=== PATIENT | female | born 1985 | race Hispanic/Latino ===

== ENCOUNTER 2022-07-26 22:36 | Inpatient (IN) | payer BC, OTHER ==
[2022-07-26] MEDS ORDERED: NIFEdipine 10 MG CAP ONE (22:54)
[2022-07-26] MEDS ORDERED: hydrALAZINE 20 MG/ML VIAL SLOW IVP PRN ×2 (23:11→23:31)
[2022-07-26 23:15] VITALS: BMI 44.1
[2022-07-26] MEDS ORDERED: Magnesium Sulfate 20 gm/500 ml 20 GM/500 ML BAG ONE (23:26)
[2022-07-26] MEDS ORDERED: Betamet Acet/Betamet Na Ph 30 MG/5 ML VIAL ONE (23:28)
[2022-07-26] MEDS ORDERED: Ondansetron PF 4 MG/2 ML Vial IVP PRN (23:31)
[2022-07-26] MEDS ORDERED: Lorazepam 2 MG/ML VIAL SLOW IVP PRN (23:31)
[2022-07-26] MEDS ORDERED: Calcium Gluc 4.6 MEQ/10 ML (100 MG/ML) SLOW IVP PRN (23:31)
[2022-07-26] MEDS ORDERED: Labetalol HCl 100 MG/20 ML VIAL SLOW IVP PRN (23:31)
[2022-07-26] MEDS ORDERED: Promethazine HCl 25 MG/ML VIAL IM PRN (23:31)
[2022-07-26] MEDS ORDERED: Labetalol HCl 100 MG/20 ML VIAL ONE (23:37)
[2022-07-26] MEDS: Lactated Ringer's 1,000 ML IV SCH (23:37)
[2022-07-26] MEDS ORDERED: Magnesium Sulfate 20 gm/500 ml 20 GM/500 ML BAG IVPB SCH (23:45)
[2022-07-26] MEDS ORDERED: Betamet Acet/Betamet Na Ph 30 MG/5 ML VIAL IM SCH (23:45)
[2022-07-26] MEDS: Labetalol HCl 100 MG/20 ML VIAL SLOW IVP PRN (23:46)
[2022-07-27 00:08] LABS: Hemoglobin 12.5 g/dL (12.0-15.5); Mean Corpuscular HGB CONC 34.5 g/dL (32.0-36.0); Mean Corpuscular Hemoglobin 29.3 pg (27.0-33.0); Mean Platelet Volume 12.6 fl (7.4-10.4); Platelet Count 361 10x3/uL (150-450); RBC Distribution Width 12.7 % (11.5-14.5); Red Blood Cell (RBC) Count 4.26 10x6/uL (3.90-5.03)
[2022-07-27 00:18] LABS: ALT (SGPT) 19 U/L (8-55); AST (SGOT) 19 U/L (5-34); Albumin 3.3 g/dL (3.5-5.0); Alkaline Phosphatase 253 U/L (40-110); Anion Gap 15 mmol/L (10-20); BUN (Urea Nitrogen) 11 mg/dL (7.0-18.7); Bilirubin, Total 0.4 mg/dL (0.2-1.2); Calc. Creatinine Clearance 217 mL/min (70-130); Calcium 8.7 mg/dL (7.8-10.44); Carbon Dioxide 20 mmol/L (22-29); Chloride 103 mmol/L (98-107); Estimated GFR 119; Globulin 3.7 g/dL (2.4-3.5); Glucose 106 mg/dL (70-105); Potassium 4.1 mmol/L (3.5-5.1); Sodium 134 mmol/L (136-145)
[2022-07-27] MEDS: Labetalol HCl 100 MG/20 ML VIAL SLOW IVP PRN (02:17)
[2022-07-27] MEDS ORDERED: metFORMIN 500 MG TAB PO SCH ×2 (08:00→19:45)
[2022-07-27] MEDS ORDERED: Labetalol HCl 200 MG TAB PO SCH (09:00)
[2022-07-27] MEDS ORDERED: NIFEdipine XL 90 MG TAB PO SCH (09:00)
[2022-07-27] MEDS ORDERED: Acetaminophen 325 MG TAB PO PRN ×2 (10:59→19:16)
[2022-07-27] MEDS: Lactated Ringer's 1,000 ML IV SCH (11:16)
[2022-07-27] MEDS ORDERED: hydrALAZINE 20 MG/ML VIAL SLOW IVP PRN ×2 (19:14→19:15)
[2022-07-27] MEDS ORDERED: Labetalol HCl 100 MG/20 ML VIAL SLOW IVP PRN (19:15)
[2022-07-27] MEDS ORDERED: Calcium Gluc 4.6 MEQ/10 ML (100 MG/ML) SLOW IVP PRN (19:15)
[2022-07-27] MEDS ORDERED: Lactated Ringer's 1,000 ML IV SCH (19:15)
[2022-07-27] MEDS ORDERED: Ondansetron PF 4 MG/2 ML Vial IVP PRN (19:15)
[2022-07-27] MEDS ORDERED: Betamet Acet/Betamet Na Ph 30 MG/5 ML VIAL IM SCH ×2 (19:15→23:45)
[2022-07-27] MEDS ORDERED: Lorazepam 2 MG/ML VIAL SLOW IVP PRN (19:15)
[2022-07-27] MEDS ORDERED: Promethazine HCl 25 MG/ML VIAL IM PRN (19:15)
[2022-07-27] MEDS: Magnesium Sulfate 20 gm/500 ml 20 GM/500 ML BAG IVPB SCH (19:43)
[2022-07-27] MEDS: Labetalol HCl 200 MG TAB PO SCH (21:08)
[2022-07-28 00:37] LABS: Creatinine, Urine 39.44 mg/dL (47-110); Protein, Urine Random Quant Less than 10 mg/dL (1-14)
[2022-07-28] MEDS: metFORMIN 500 MG TAB PO SCH (09:03)
[2022-07-28] MEDS: Labetalol HCl 200 MG TAB PO SCH (09:03)
[2022-07-28] MEDS ORDERED: Morphine PF 10 MG/10 ML VIAL ONE (19:14)
[2022-07-28] MEDS ORDERED: Fentanyl 100 MCG/2 ML VIAL ONE (19:14)
[2022-07-28] MEDS ORDERED: Oxytocin 10 UNITS/ML VIAL ONE ×2 (19:15→21:29)
[2022-07-28] MEDS ORDERED: Dexamethasone 4 mg/ml Vial ONE (19:15)
[2022-07-28] MEDS ORDERED: Ondansetron PF 4 MG/2 ML Vial ONE (19:15)
[2022-07-28] MEDS ORDERED: Famotidine/PF 20 mg/2ml Vial ONE (19:17)
[2022-07-28] MEDS ORDERED: CEFAZOLIN 2 GM VIAL ONE (19:17)
[2022-07-28] MEDS ORDERED: Bicitra 30 ML UDCUP PO PRN (19:31)
[2022-07-28] MEDS ORDERED: Famotidine/PF 20 mg/2ml Vial SLOW IVP PRN (19:31)
[2022-07-28 19:39] LABS: #Monocytes 0.9 10x3/uL (0.0-1.1); #Neutrophils 13.1 10x3/uL (1.5-8.4); %Basophils 0.2 % (0.0-2.0); %Eosinophils 0.1 % (0.0-6.0); %Lymphocytes 14.9 % (18.0-47.0); %Monocytes 5.6 % (0.0-10.0); %Neutrophils 77.1 % (40.0-75.0); Hemoglobin 11.6 g/dL (12.0-15.5); Mean Corpuscular HGB CONC 34.6 g/dL (32.0-36.0); Mean Corpuscular Hemoglobin 30.3 pg (27.0-33.0); Mean Corpuscular Volume 87.5 fl (81.6-98.3); Mean Platelet Volume 12.3 fl (7.4-10.4); Platelet Count 330 10x3/uL (150-450); RBC Distribution Width 13.2 % (11.5-14.5); Red Blood Cell (RBC) Count 3.83 10x6/uL (3.90-5.03); White Blood Cell (WBC) Count 16.9 10x3/uL (3.5-10.5)
[2022-07-28 19:45] LABS: ALT (SGPT) 31 U/L (8-55); AST (SGOT) 25 U/L (5-34); Albumin 3.1 g/dL (3.5-5.0); Alkaline Phosphatase 235 U/L (40-110); Anion Gap 15 mmol/L (10-20); BUN (Urea Nitrogen) 15 mg/dL (7.0-18.7); Bilirubin, Total 0.2 mg/dL (0.2-1.2); Calc. Creatinine Clearance 217 mL/min (70-130); Calcium 8.2 mg/dL (7.8-10.44); Carbon Dioxide 19 mmol/L (22-29); Chloride 105 mmol/L (98-107); Estimated GFR 119; Glucose 117 mg/dL (70-105); Potassium 4.2 mmol/L (3.5-5.1); Protein, Total 7.1 g/dL (6.0-8.3); Sodium 135 mmol/L (136-145)
[2022-07-28] MEDS ORDERED: CEFAZOLIN 2 GM in Sodium Chloride 0.9% 100 ML IVPB SCH (19:45)
[2022-07-28 20:08] LABS: Hemoglobin 11.4 g/dL (12.0-15.5); Mean Corpuscular HGB CONC 34.4 g/dL (32.0-36.0); Mean Corpuscular Volume 87.1 fl (81.6-98.3); Platelet Count 330 10x3/uL (150-450); RBC Distribution Width 13.1 % (11.5-14.5); White Blood Cell (WBC) Count 15.9 10x3/uL (3.5-10.5)
[2022-07-28 20:25] LABS: Syphilis Antibody Nonreactive (Nonreactive); Syphilis Antibody Index 0.04 S/CO (<1.00 Non-Reactive)
[2022-07-28 20:27] LABS: HBSAg Index 0.15 S/CO (0-0.99); Hep B Surf Ag Non-Reactive S/CO (NonReactive)
[2022-07-28] MEDS ORDERED: Ketorolac Tromethamine 30 MG/ML VIAL ONE (21:21)
[2022-07-28 21:22] LABS: RapidComm Collect By CBN
[2022-07-28 21:24] LABS: RapidComm Collect By CBN; pH (Cord, venous) 7.324 (7.250-7.350)
[2022-07-28] MEDS ORDERED: Calcium Gluc 4.6 MEQ/10 ML (100 MG/ML) SLOW IVP PRN (21:51)
[2022-07-28] MEDS ORDERED: Lorazepam 2 MG/ML VIAL SLOW IVP PRN (21:51)
[2022-07-28] MEDS ORDERED: Magnesium Sulfate 20 gm/500 ml 20 GM/500 ML BAG IVPB SCH (22:00)
[2022-07-28] MEDS: Magnesium Sulfate 20 gm/500 ml 20 GM/500 ML BAG IVPB SCH (22:05)
[2022-07-28] MEDS ORDERED: hydrALAZINE 20 MG/ML VIAL SLOW IVP SCH (22:30)
[2022-07-28] MEDS ORDERED: Carboprost 250 MCG/ML AMP ONE (23:09)
[2022-07-28] MEDS ORDERED: Misoprostol 200 MCG TAB ONE (23:09)
[2022-07-28] MEDS ORDERED: Carboprost 250 MCG/ML AMP IM SCH (23:30)
[2022-07-28] MEDS ORDERED: Misoprostol 200 MCG TAB PR SCH (23:30)
[2022-07-28] MEDS ORDERED: Diphenoxylate HCl/Atropine Tablet PO SCH (23:30)
[2022-07-28] MEDS ORDERED: Tranexamic Acid 1,000 MG/10 ML VIAL ONE ×2 (23:31→23:51)
[2022-07-29] MEDS ORDERED: Carboprost 250 MCG/ML AMP ONE ×2 (00:08→00:40)
[2022-07-29 01:53] LABS: Hemoglobin 10.9 g/dL (12.0-15.5); Mean Corpuscular Hemoglobin 29.4 pg (27.0-33.0); Mean Corpuscular Volume 86.5 fl (81.6-98.3); Mean Platelet Volume 12.5 fl (7.4-10.4); Platelet Count 288 10x3/uL (150-450); RBC Distribution Width 13.9 % (11.5-14.5); Red Blood Cell (RBC) Count 3.71 10x6/uL (3.90-5.03); White Blood Cell (WBC) Count 31.6 10x3/uL (3.5-10.5)
[2022-07-29 01:54] LABS: Lactic Acid 3.5 mmol/L (0.5-2.2)
[2022-07-29 03:06] LABS: MDiff Complete? YES; Platelet Morphology Comment Appears Adequate
[2022-07-29 03:09] LABS: Band 5 % (5-11); Lymphocytes 8 % (21-51); Monocytes 4 % (0-10); Neutrophil 83 % (42-75)
[2022-07-29 03:12] LABS: INR-International Normal Ratio 0.8; PTT 23.1 sec (22.0-33.0); Prothrombin Time 9.2 sec (9.5-12.1)
[2022-07-29 03:34] LABS: Anion Gap 16 mmol/L (10-20); BUN (Urea Nitrogen) 18 mg/dL (7.0-18.7); Calc. Creatinine Clearance 221 mL/min (70-130); Calcium 7.5 mg/dL (7.8-10.44); Carbon Dioxide 18 mmol/L (22-29); Chloride 104 mmol/L (98-107); Estimated GFR 120; Glucose 152 mg/dL (70-105); Potassium 4.2 mmol/L (3.5-5.1); Sodium 134 mmol/L (136-145)
[2022-07-29] MEDS ORDERED: Ondansetron PF 4 MG/2 ML Vial IVP PRN (08:39)
[2022-07-29] MEDS ORDERED: hydrALAZINE 20 MG/ML VIAL SLOW IVP PRN (08:39)
[2022-07-29] MEDS ORDERED: Measles/Mumps/Rubella 10 MCG/0.5 ML VIAL SC ONE (08:39)
[2022-07-29] MEDS ORDERED: Lanolin Ointment 7 GM TUBE TOP PRN (08:39)
[2022-07-29] MEDS ORDERED: Simethicone Chewable 80 MG TAB PO PRN (08:39)
[2022-07-29] MEDS ORDERED: Promethazine HCl 25 MG/ML VIAL IM PRN (08:39)
[2022-07-29] MEDS ORDERED: Zolpidem Tartrate 5 MG TAB PO PRN (08:39)
[2022-07-29] MEDS ORDERED: Boostrix 0.5 ML (Tdap) VIAL (>/=7 yrs of age) IM ONE (08:39)
[2022-07-29] MEDS ORDERED: diphenhydrAMINE 25 MG CAP PO PRN (08:39)
[2022-07-29] MEDS ORDERED: Acetaminophen 325 MG TAB PO PRN (08:39)
[2022-07-29] MEDS ORDERED: Varicella virus, LIVE 0.5 ML VIAL SC ONE (08:39)
[2022-07-29] MEDS ORDERED: HYDROcodone/Acetaminophen 5/325 mg Tablet PO PRN ×2 (08:39)
[2022-07-29] MEDS ORDERED: NS w/ Oxytocin 30 units 500 ML IV SCH (08:39)
[2022-07-29] MEDS ORDERED: Bisacodyl 10 MG SUPP PR PRN (08:39)
[2022-07-29] MEDS: metFORMIN 500 MG TAB PO SCH ×3 (09:03→18:09)
[2022-07-29] MEDS: NIFEdipine XL 90 MG TAB PO SCH ×2 (09:03→15:05)
[2022-07-29 09:25] LABS: #Monocytes 0.9 10x3/uL (0.0-1.1); #Neutrophils 14.2 10x3/uL (1.5-8.4); %Basophils 0.1 % (0.0-2.0); %Eosinophils 0.1 % (0.0-6.0); %Lymphocytes 9.7 % (18.0-47.0); %Monocytes 5.5 % (0.0-10.0); %Neutrophils 83.9 % (40.0-75.0); Hemoglobin 10.8 g/dL (12.0-15.5); Mean Corpuscular Hemoglobin 29.4 pg (27.0-33.0); Mean Corpuscular Volume 84.2 fl (81.6-98.3); Mean Platelet Volume 12.1 fl (7.4-10.4); Platelet Count 233 10x3/uL (150-450); RBC Distribution Width 14.4 % (11.5-14.5); Red Blood Cell (RBC) Count 3.67 10x6/uL (3.90-5.03)
[2022-07-29 10:12] LABS: ALT (SGPT) 29 U/L (8-55); AST (SGOT) 30 U/L (5-34); Albumin 2.8 g/dL (3.5-5.0); Alkaline Phosphatase 180 U/L (40-110); Anion Gap 13 mmol/L (10-20); BUN (Urea Nitrogen) 15 mg/dL (7.0-18.7); Bilirubin, Total 0.9 mg/dL (0.2-1.2); Calc. Creatinine Clearance 217 mL/min (70-130); Calcium 7.7 mg/dL (7.8-10.44); Carbon Dioxide 22 mmol/L (22-29); Chloride 103 mmol/L (98-107); Estimated GFR 119; Globulin 3.2 g/dL (2.4-3.5); Glucose 115 mg/dL (70-105); Potassium 4.2 mmol/L (3.5-5.1); Sodium 134 mmol/L (136-145)
[2022-07-29] MEDS: CEFAZOLIN 2 GM in Sodium Chloride 0.9% 100 ML IVPB SCH ×2 (10:17→18:08)
[2022-07-29] MEDS: Ibuprofen 800 MG TAB PO SCH ×3 (14:28→21:28)
[2022-07-29] MEDS: Docusate 100 MG CAP PO SCH ×2 (15:05→21:28)
[2022-07-29] MEDS: Prenatal Vitamin 1 TAB PO SCH (15:06)
[2022-07-30 04:41] LABS: Mean Corpuscular Hemoglobin 29.2 pg (27.0-33.0); Mean Corpuscular Volume 85.7 fl (81.6-98.3); Mean Platelet Volume 12.4 fl (7.4-10.4); Platelet Count 237 10x3/uL (150-450); RBC Distribution Width 14.2 % (11.5-14.5); Red Blood Cell (RBC) Count 3.43 10x6/uL (3.90-5.03); White Blood Cell (WBC) Count 12.7 10x3/uL (3.5-10.5)
[2022-07-30] MEDS: Ibuprofen 800 MG TAB PO SCH (05:29)
[2022-07-30] MEDS: NIFEdipine XL 90 MG TAB PO SCH (08:50)
[2022-07-30] MEDS: Prenatal Vitamin 1 TAB PO SCH (08:50)
[2022-07-30] MEDS: metFORMIN 500 MG TAB PO SCH (08:50)
[2022-07-30] MEDS: Docusate 100 MG CAP PO SCH (08:50)
[2022-07-30 11:31] VITALS: BP 144/73; TEMP 97.7
[2022-07-30] MEDS ORDERED: Ibuprofen 800 MG TAB PO SCH (14:00)
== END 2022-07-30 13:15 | disposition home or self-care (01) | DRG 788 ==
LOC: CSHLD/OP 22:36 → CSHLD 23:31 → UNDODISIN 07-27 13:57 → CSHPP 07-29 12:55
PROVIDERS: ADMIT Obstetrics & Gynecology; ATTEND Obstetrics & Gynecology
PROC: 10D00Z1 Extraction of Products of Conception, Low, Open Approach (ICD-10-PCS; principal; 2022-07-28)
PROC: 0W3R7ZZ Control Bleeding in Genitourinary Tract, Via Natural or Artificial Opening (ICD-10-PCS; 2022-07-28)
PROC: 0UB90ZZ Excision of Uterus, Open Approach (ICD-10-PCS; 2022-07-28)
PROC: 30233N1 Transfusion of Nonautologous Red Blood Cells into Peripheral Vein, Percutaneous Approach (ICD-10-PCS; 2022-07-28)
PROC: 30233K1 Transfusion of Nonautologous Frozen Plasma into Peripheral Vein, Percutaneous Approach (ICD-10-PCS; 2022-07-28)
DX: O11.4 Pre-existing hypertension with pre-eclampsia, complicating childbirth (principal); O10.92 Unspecified pre-existing hypertension complicating childbirth; Z3A.33 33 weeks gestation of pregnancy; Z37.0 Single live birth; Z20.822 Contact with and (suspected) exposure to COVID-19; O24.425 Gestational diabetes mellitus in childbirth, controlled by oral hypoglycemic drugs; Z79.84 Long term (current) use of oral hypoglycemic drugs; Z90.49 Acquired absence of other specified parts of digestive tract; Z79.899 Other long term (current) drug therapy; O72.2 Delayed and secondary postpartum hemorrhage; E66.9 Obesity, unspecified; O99.214 Obesity complicating childbirth; O34.13 Maternal care for benign tumor of corpus uteri, third trimester; D25.2 Subserosal leiomyoma of uterus; O69.81X0 Labor and delivery complicated by cord around neck, without compression, not applicable or unspecified
CPT/HCPCS: 36415; 36416; 36430; 51702; 59025; 76805; 76819; 80048; 80053; 82570; 82805; 83605; 84156; 84550; 85025; 85027; 85384; 85610; 85730; 86780; 86850; 86900; 86901; 87340; 88305; 88307; 99285; J0360; J0702; J1100; J1885; J2274; J2405; J2590; J3010; J3475; J3490; J7120; P9016; P9048